=== PATIENT | male | born 1950 | race Caucasian/White ===

== ENCOUNTER → 2017-02-05 | Outpatient (CLI) | payer OTHER | END | disposition home or self-care (01) | LOC: PCVCIMAG 12:48 | PROVIDERS: ATTEND Internal Medicine | DX: I42.9 Cardiomyopathy, unspecified (principal); I10 Essential (primary) hypertension; E78.2 Mixed hyperlipidemia; Z95.2 Presence of prosthetic heart valve | CPT/HCPCS: 80061; 93005; 93306; G0463 ==

== ENCOUNTER → 2017-08-11 | Outpatient (CLI) | payer OTHER | END | disposition home or self-care (01) | LOC: PCVCCLINIC 10:50 | PROVIDERS: ATTEND Internal Medicine | DX: I10 Essential (primary) hypertension (principal); I42.2 Other hypertrophic cardiomyopathy; E78.5 Hyperlipidemia, unspecified; I45.10 Unspecified right bundle-branch block; R00.1 Bradycardia, unspecified; I45.2 Bifascicular block; Z95.2 Presence of prosthetic heart valve; Z79.01 Long term (current) use of anticoagulants | CPT/HCPCS: 80061; 93005; G0463 ==

== ENCOUNTER → 2017-10-06 | Outpatient (CLI) | payer OTHER | END | disposition home or self-care (01) | LOC: PCVCCLINIC 13:09 | DX: Z51.81 Encounter for therapeutic drug level monitoring (principal); I10 Essential (primary) hypertension; K21.9 Gastro-esophageal reflux disease without esophagitis; D64.9 Anemia, unspecified; E78.5 Hyperlipidemia, unspecified; Z95.2 Presence of prosthetic heart valve; Z79.01 Long term (current) use of anticoagulants | CPT/HCPCS: 85610 ==

== ENCOUNTER → 2017-10-22 | Outpatient (CLI) | payer OTHER | END | disposition home or self-care (01) | LOC: PCVCCLINIC 09:52 | DX: Z51.81 Encounter for therapeutic drug level monitoring (principal); I10 Essential (primary) hypertension; K21.9 Gastro-esophageal reflux disease without esophagitis; D64.9 Anemia, unspecified; E78.5 Hyperlipidemia, unspecified; Z79.01 Long term (current) use of anticoagulants; Z95.2 Presence of prosthetic heart valve | CPT/HCPCS: 85610 ==

== ENCOUNTER → 2017-10-29 | Outpatient (CLI) | payer OTHER | END | disposition home or self-care (01) | LOC: PCVCCLINIC 09:27 | DX: Z51.81 Encounter for therapeutic drug level monitoring (principal); I10 Essential (primary) hypertension; D64.9 Anemia, unspecified; E78.5 Hyperlipidemia, unspecified; Z95.2 Presence of prosthetic heart valve; Z79.01 Long term (current) use of anticoagulants | CPT/HCPCS: 85610 ==

== ENCOUNTER → 2017-11-05 | Outpatient (CLI) | payer OTHER | END | disposition home or self-care (01) | LOC: PCVCCLINIC 08:30 | DX: Z51.81 Encounter for therapeutic drug level monitoring (principal); I10 Essential (primary) hypertension; K21.9 Gastro-esophageal reflux disease without esophagitis; E78.5 Hyperlipidemia, unspecified; Z95.2 Presence of prosthetic heart valve; Z79.01 Long term (current) use of anticoagulants | CPT/HCPCS: 85610 ==

== ENCOUNTER → 2018-02-10 | Outpatient (CLI) | payer OTHER | END | disposition home or self-care (01) | LOC: PCVCCLINIC 09:52 | DX: I10 Essential (primary) hypertension (principal); I42.2 Other hypertrophic cardiomyopathy; E78.5 Hyperlipidemia, unspecified; I45.2 Bifascicular block; Z79.01 Long term (current) use of anticoagulants; Z95.2 Presence of prosthetic heart valve; Z79.899 Other long term (current) drug therapy | CPT/HCPCS: 80061; 93005; G0463 ==

== ENCOUNTER → 2018-08-21 | Outpatient (CLI) | payer OTHER ==
--- NOTE | 2018-08-21 12:11 | PCVCIMAG ---
APPROVED REPORT Study performed: 08/21/2018 09:40:43 EXAM: Comprehensive 2D, Doppler, and color-flow Echocardiogram Patient Location: Echo lab Status: routine BSA: 2.03 HR: 56 bpmBP: 157/50 mmHg Rhythm: Bradycardia, bifascicular block Other Information Study Quality: Adequate Indications Abnormal ECG Hypertrophic cardiomyopathy, #33 [facility] Mitral valve replacement 2D Dimensions IVSd: 14.71 (7-11mm) LVDd: 49.92 mm PWd: 11.85 (7-11mm)Ascending Ao: 37.97 (22-36mm) LVDs: 30.83 (25-40mm) Left Atrium: 38.32 (27-40mm) Aortic Root: 36.43 mm LV Single Plane 4CH: 57.39 % LV Single Plane 2CH: 59.13 % Biplane EF: 58.9 % Volumes Left Atrial Volume (Systole) Single Plane 4CH: 75.16 mLSingle Plane 2CH: 94.48 mL LA ESV Index: 46.00 mL/m2 Aortic Valve AoV Peak Joe.: 1.43 m/s AO Peak Gr.: 8.23 mmHgLVOT Max P.25 mmHg LVOT Max V: 1.15 m/s AI Vmax: 4.18 m/s AI Hardee: 2.32 m/s2 AI PHT: 541.24 ms Mitral Valve MV Peak Gr.: 7.81 mmHg MV Mean Gr.: 2.62 mmHgE/A Ratio: 1.6 MV Decel. Time: 264.27 ms MV E Max Joe.: 1.30 m/s MV A Joe.: 0.83 m/s MV Max Joe.: 1.40 m/s MV VTI: 515.71 mm MV PHT: 76.64 ms MVA (PHT): 1.83 cm2 IVRT: 73.82 ms Pulmonary Valve PV Peak Joe.: 0.93 m/sPV Peak Gr.: 3.46 mmHg Pulmonary Vein P Vein S: 0.28 m/sP Vein A: 0.29 m/s P Vein D: 0.45 m/sP Vein A Dur.: 129.2 msec P Vein S/D Ratio: 0.62 Tricuspid Valve TR Peak Joe.: 2.74 m/s TR Peak Gr.: 29.95 mmHg Left Ventricle The left ventricle is normal size. There is normal LV segmental wall motion. Mild concentric left ventricular hypertrophy. Left ventricular systolic function is normal. The left ventricular ejection fraction is within the normal range. LVEF is 55-60%. This study is not technically sufficient to allow evaluation of the LV diastolic function. Right Ventricle The right ventricle is normal size. The right ventricular systolic function is normal. Atria Left atrium is moderately dilated. Right atrium is moderately dilated. Aortic Valve The aortic valve is mildly scleroitc. Moderate aortic regurgitation. There is no aortic valvular stenosis. Mitral Valve Normally functioning #[address] [facility] mechanical valve. Mild mitral regurgitation. No evidence of mitral valve stenosis. Tricuspid Valve The tricuspid valve is normal in structure. Mild tricuspid regurgitation with PAP of 30 mmHg. Pulmonic Valve The pulmonary valve is normal in structure. Mild pulmonic regurgitation. Great Vessels The aortic root is normal in size. The ascending aorta is borderline dilated to 3.8 cm. IVC is normal in size and collapses >50% with inspiration. Pericardium There is no pericardial effusion. There is no pleural effusion. <Conclusion> Left ventricular systolic function is normal. There is normal LV segmental wall motion. LVEF is 55-60%. Both atria are dilated. The aortic valve is mildly scleroitc. At least moderate aortic regurgitation, no stenosis. Normally functioning #[address] [facility] mechanical valve. Mild mitral regurgitation. Mild tricuspid regurgitation with pulmonary artery pressure of 30 mmHg. The ascending aorta is borderline dilated to 3.8 cm. There is no pericardial effusion. Similar to 01/2017
== END | disposition home or self-care (01) ==
LOC: PCVCIMAG 09:34
PROVIDERS: ATTEND Internal Medicine
DX: I08.3 Combined rheumatic disorders of mitral, aortic and tricuspid valves (principal); I42.2 Other hypertrophic cardiomyopathy; I10 Essential (primary) hypertension; E78.5 Hyperlipidemia, unspecified; R94.31 Abnormal electrocardiogram [ECG] [EKG]
CPT/HCPCS: 93306

== ENCOUNTER → 2019-02-18 | Outpatient (CLI) | payer OTHER | END | disposition home or self-care (01) | LOC: PCVCCLINIC 09:30 | PROVIDERS: ATTEND Internal Medicine | DX: I42.2 Other hypertrophic cardiomyopathy (principal); I10 Essential (primary) hypertension; E78.5 Hyperlipidemia, unspecified; I45.2 Bifascicular block; Z95.2 Presence of prosthetic heart valve; Z79.01 Long term (current) use of anticoagulants | CPT/HCPCS: 36415; 80061; 93005; G0463 ==

== ENCOUNTER → 2019-06-08 | Outpatient (CLI) | payer OTHER | END | disposition home or self-care (01) | LOC: PCVCCLINIC 14:40 | PROVIDERS: ATTEND Internal Medicine | DX: I42.2 Other hypertrophic cardiomyopathy (principal); I48.3 Typical atrial flutter; I11.0 Hypertensive heart disease with heart failure; I50.9 Heart failure, unspecified; E78.5 Hyperlipidemia, unspecified; I45.2 Bifascicular block; Z79.01 Long term (current) use of anticoagulants; Z95.2 Presence of prosthetic heart valve; Z79.899 Other long term (current) drug therapy | CPT/HCPCS: 93005; G0463 ==

== ENCOUNTER → 2019-08-24 | Outpatient (CLI) | payer OTHER ==
--- NOTE | 2019-08-24 10:17 | PCVCIMAG ---
APPROVED REPORT Study performed: 08/24/2019 09:26:12 EXAM: Comprehensive 2D, Doppler, and color-flow Echocardiogram Patient Location: Echo lab Status: routine BSA: 2.02 HR: 56 bpmBP: 136/72 mmHg Rhythm: Bradycardia Other Information Study Quality: Adequate Indications #33 Mitral valve replacement, hypertrophic cardiomyopathy, hx a flutter 2D Dimensions IVSd: 15.91 (7-11mm) LVDd: 50.01 mm PWd: 10.24 (7-11mm)Ascending Ao: 39.95 (22-36mm) LVDs: 34.64 (25-40mm) Left Atrium: 46.45 (27-40mm) Aortic Root: 36.34 mm LV Single Plane 4CH: 56.84 % LV Single Plane 2CH: 62.72 % Biplane EF: 59.4 % Volumes Left Atrial Volume (Systole) Single Plane 4CH: 108.49 mLSingle Plane 2CH: 121.50 mL LA ESV Index: 60.00 mL/m2 Aortic Valve AoV Peak Joe.: 1.67 m/s AO Peak Gr.: 11.18 mmHgLVOT Max P.62 mmHg LVOT Max V: 1.19 m/s AI Vmax: 4.49 m/s AI Ponce: 3.11 m/s2 AI PHT: 418.40 ms Mitral Valve MV Peak Gr.: 10.61 mmHg MV Mean Gr.: 2.91 mmHg MV Max Joe.: 1.63 m/s MV Mean Joe.: 0.75 m/s MV VTI: 509.13 mm MV PHT: 101.32 ms MVA (PHT): 2.17 cm2 IVRT: 117.65 ms Pulmonary Valve PV Peak Joe.: 1.37 m/sPV Peak Gr.: 7.48 mmHg Pulmonary Vein P Vein S: 0.32 m/sP Vein A: 0.36 m/s P Vein D: 0.48 m/sP Vein A Dur.: 141.9 msec P Vein S/D Ratio: 0.67 Tricuspid Valve TR Peak Joe.: 2.51 m/s TR Peak Gr.: 25.16 mmHg Left Ventricle The left ventricle is normal size. There is normal LV segmental wall motion. Moderate septal hypertrophy. The left ventricular systolic function is normal. The left ventricular ejection fraction is within the normal range. LVEF is 60%. This study is not technically sufficient to allow evaluation of the LV diastolic function. Right Ventricle The right ventricle is normal size. The right ventricular systolic function is normal. Atria Left atrium is moderately dilated. Right atrium is moderately dilated. Aortic Valve Mild aortic sclerosis, trileaflet. Moderate aortic regurgitation. There is no aortic valvular stenosis. Mitral Valve Normally functioning #[address] [facility] mechanical valve in mitral position. Trace to mild mitral regurgitation. No evidence of mitral valve stenosis. Calculated mitral valve area is 2.2 cm2 with maximum pressure gradient of 10.6 mmHg and mean pressure gradient of 2.9 mmHg. Tricuspid Valve The tricuspid valve is normal in structure. Mild tricuspid regurgitation with PAP of 32 mmHg. Pulmonic Valve The pulmonary valve is normal in structure. Mild pulmonic regurgitation. Great Vessels The aortic root is normal in size. Ascending aorta is dilated (4.0 cm). IVC is normal in size and collapses >50% with inspiration. Pericardium There is no pericardial effusion. There is no pleural effusion. <Conclusion> The left ventricular systolic function is normal. There is normal LV segmental wall motion. LVEF is 60%. Both atria are moderately dilated. Mild aortic sclerosis, trileaflet. Moderate aortic regurgitation, no stenosis. Normally functioning #33 [facility] mechanical valve in mitral position. No evidence of mitral valve stenosis. Trace-mild insufficiency Calculated mitral valve area is 2.2 cm2 with maximum pressure gradient of 10.6 mmHg and mean pressure gradient of 2.9 mmHg. Mild tricuspid regurgitation with pulmonary artery pressure of 32 mmHg. There is no pericardial effusion.
== END | disposition home or self-care (01) ==
LOC: PCVCIMAG 09:35
PROVIDERS: ATTEND Internal Medicine
DX: I08.8 Other rheumatic multiple valve diseases (principal); I44.0 Atrioventricular block, first degree; I45.10 Unspecified right bundle-branch block; I44.4 Left anterior fascicular block; I45.2 Bifascicular block; I48.3 Typical atrial flutter; I42.2 Other hypertrophic cardiomyopathy; Z95.2 Presence of prosthetic heart valve; E78.5 Hyperlipidemia, unspecified; I11.0 Hypertensive heart disease with heart failure; I50.9 Heart failure, unspecified; Z79.01 Long term (current) use of anticoagulants; Z79.899 Other long term (current) drug therapy
CPT/HCPCS: 93306